=== PATIENT | female | born 2005 | race Caucasian/White ===

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

== ENCOUNTER 2023-06-29 18:31 | Emergency (ER) | payer MEDICAID, OTHER ==
[~2023-06-29] VITALS: Ht 165.1 cm; Wt 54.5 kg
[2023-06-29 18:55] VITALS: BP 117/68; PULSE 98; RESP 17; TEMP 98.6; O2SAT 99
--- NOTE | 2023-06-29 20:02 | NUR ---
pt stated she was seen yeaterday at [facility] and discharged with dx of constipation. pt refused all lab work and did not want to provide urine. pt left wo being seen.
== END 2023-06-29 20:06 | disposition left against medical advice (07) ==
LOC: ER 18:31
DX: M54.59 Other low back pain (principal); Z53.21 Procedure and treatment not carried out due to patient leaving prior to being seen by health care provider
CPT/HCPCS: 99281

== ENCOUNTER 2024-02-18 11:25 | Outpatient (CLI) | payer MEDICAID | END 2024-02-18 23:59 | disposition home or self-care (01) | LOC: RAD 11:25 | DX: S92.511A Displaced fracture of proximal phalanx of right lesser toe(s), initial encounter for closed fracture (principal); S92.911A Unspecified fracture of right toe(s), initial encounter for closed fracture; X58.XXXA Exposure to other specified factors, initial encounter; Y93.89 Activity, other specified; Y92.89 Other specified places as the place of occurrence of the external cause; Y99.8 Other external cause status | CPT/HCPCS: 73630 ==

== ENCOUNTER 2024-04-09 03:55 | Emergency (ER) | payer MEDICAID ==
[~2024-04-09] VITALS: Ht 170.2 cm; Wt 46.4 kg
[2024-04-09 03:57] VITALS: BP 114/67; PULSE 91; RESP 18; TEMP 98.3; O2SAT 96
[2024-04-09] MEDS ORDERED: CEPH250T PO (06:27)
[2024-04-09] MEDS: ketorolac tromethamine 15mg/ml inj. IM ONE (06:45)
== END 2024-04-09 07:10 | disposition home or self-care (01) ==
LOC: ER 03:55 → EEVIPCON 03:55 → ER 07:10
DX: S00.93XA Contusion of unspecified part of head, initial encounter (principal); S80.211A Abrasion, right knee, initial encounter; F12.90 Cannabis use, unspecified, uncomplicated; Z88.8 Allergy status to other drugs, medicaments and biological substances; Z79.1 Long term (current) use of non-steroidal anti-inflammatories (NSAID); Z79.899 Other long term (current) drug therapy; W22.8XXA Striking against or struck by other objects, initial encounter; Y93.89 Activity, other specified; Y92.89 Other specified places as the place of occurrence of the external cause; Y99.8 Other external cause status
CPT/HCPCS: 96372; 99283; J1885